=== PATIENT | female | born 1995 | race Caucasian/White ===

== ENCOUNTER 2017-01-12 19:45 | Emergency (ER) | payer OTHER ==
[2017-01-12] MEDS ORDERED: Ibuprofen TAB* 600 MG PO ONE (20:39)
[2017-01-12] MEDS ORDERED: Albuterol HFA INHALER* 8 gm MDI INH ONE (20:40)
--- NOTE | 2017-01-12 20:52 | ED ---
Influenza-Like Illness - HPI Summary HPI Summary: Pt here w/ flu-like sx x 5 days. Sneezing, coughing, head congestion, mild otalgia, throat irritation, fever, and intermittent vomiting triggered by prolonged/forceful cough. Has chest pain w/ cough at times = feels like she could bring something up but it's stuck. Sleeps well w/ Nyquil. Has not been taking ibuprofen/acetaminophen for fever, pain. Has generalized aches and reports diarrhea this morning. Has some epigastric discomfort. Admits to a h/o bronchitis and this feels the same. Had pneumonia as a younger child once as well. Did not have an influenza vaccine this year. Recent exposure to friend w/ mono - states she's been tested many times and always comes up negative. Smokes marijuana daily but hasn't smoked in the past 2 days d/t cough, chest discomfort. - History of Current Complaint Chief Complaint: EDGeneral Time Seen by Provider: 01/12/17 20:21 Hx Obtained From: Patient, Family/[employer] - roommates - Allergy/Home Medications Allergies/Adverse Reactions: Allergies Allergy/AdvReac Type Severity Reaction Status Date / Time No Known Allergies Allergy Verified 01/12/17 20:16 PMH/Surg Hx/FS Hx/Imm Hx Previously Healthy: Yes Endocrine/Hematology History: Denies: Autoimmune Disease Respiratory History: Reports: Hx Pneumonia - 1 x as infant, Other Respiratory Problems/Disorders - has had bronchitis a few times Denies: Hx Asthma, Hx Seasonal Allergies GI History: Denies: Hx Gastroesophageal Reflux Disease Infectious Disease History: Reports: Traveled Outside the in Last 30 Days - [place], [place] - Family History Known Family History: Positive: None - Social History Occupation: Employed Part-time - [employer], Student Lives: With Family - roommates Alcohol Use: Rare Hx Substance Use: Yes Substance Use Type: Reports: Marijuana - almost daily Hx Tobacco Use: No Smoking Status (MU): Never Smoked Tobacco Review of Systems Positive: Fever Negative: Drainage, Erythema ENT: Other - see HPI Cardiovascular: Other - see HPI Respiratory: Other - see HPI Gastrointestinal: Other - see HPI Positive: no symptoms reported Musculoskeletal: Other - see HPI Negative: Rash, Bruising Positive: Headache - gets migraines if she takes too much Vit C which she's tried recently - no MCKEON at this time Psychological: Normal All Other Systems Reviewed And Are Negative: Yes Physical Exam Triage Information Reviewed: Yes Vital Signs On Initial Exam: Initial Vitals Temp Pulse Resp BP Pulse Ox 100 F 99 16 114/76 100 01/12/17 20:05 01/12/17 20:05 01/12/17 20:05 01/12/17 20:05 01/12/17 20:05 Vital Signs Reviewed: Yes Appearance: Positive: Well-Appearing, No Pain Distress, Well-Nourished Skin: Positive: Warm, Dry - no rash Head/Face: Positive: Normal Head/Face Inspection - Sinuses w/ mild TTP Eyes: Positive: Normal, EOMI, Conjunctiva Clear. Negative: Conjunctiva Inflammed, Discharge ENT: Positive: Hearing grossly normal, Pharynx normal - cobblestoning, Nasal congestion, TMs normal. Negative: Nasal drainage, Tonsillar swelling, Tonsillar exudate Neck: Positive: Supple, Nontender, No Lymphadenopathy Respiratory/Lung Sounds: Positive: Clear to Auscultation, Breath Sounds Present. Negative: Rales, Rhonchi, Stridor, Wheezes Cardiovascular: Positive: Normal, RRR Abdomen Description: Positive: No Organomegaly, Soft, Other: - mild epigastric TTP - no rebounding. Negative: Splenomegaly Bowel Sounds: Positive: Present Musculoskeletal: Positive: Normal, Strength/ROM Intact Neurological: Positive: Normal, Sensory/Motor Intact, Alert, Oriented to Person Place, Time, CN Intact II-III Psychiatric: Positive: Normal - concerned Diagnostics - Vital Signs Vital Signs Temp Pulse Resp BP Pulse Ox 01/12/17 20:05 100 F 99 16 114/76 100 - Laboratory Lab Statement: Any lab studies that have been ordered have been reviewed, and results considered in the medical decision making process. Flu Symptom Course/Dx - Course Course Of Treatment: Suspect pt has systemic virus and w/ prolonged cough, most likely has bronchitis. Discussed importance of remaining smoke-free during healing period and avoid other triggers. Supportive care reviewed (See HPI). Advised to return to ED if danger s/sx present. Pt agrees w/ plan. - Diagnoses Provider Diagnoses: Influenza-like illness Discharge - Discharge Plan Condition: Stable Disposition: HOME Patient Education Materials: Acute Bronchitis (ED) Forms: *Work Release Referrals: [facility] @ [Outside] Additional Instructions: You appear to have a viral infection. This may be influenza. Due to a prolonged cough, you may also have developed bronchitis. It is advised that you rest, stay hydrated and take ibuprofen alternating w/ acetaminophen for fever, pain. Avoid inhaled or potentially inhaled chemicals such as smoke, candle, air fresheners, perfumes, aerosol cleaning products, etc. You were provided with an albuterol inhaler tonight. You may use this every 4-6 hours as needed for cough , chest tightness. You may also try the following for support: Nasal wash (netti pot) & throat gargle 2 x day with 8 ounces of warm water + 1/ 4 teaspoon of salt Drink 60+ ounces of water daily Sleep 8+ hours per night Avoid Dairy and sugar Hot herbal/decaf tea with lemon & honey Chicken broth (preferably organic, free range chicken) Humidifier in house, but especially near bed at night Try a facial steam with or without eucalyptus essential oil Cough drops Consider taking Vitamin D3 5,000iu and Vitamin C 1,000mg every day during illness Follow-up at [facility] if symptoms persist. *If you develop uncontrolled fever (> 103F) despite medication, intractable vomiting, diarrhea, trouble breathing, or chest pain, return to ED
[2017-01-12 22:25] VITALS: BP 122/84
== END 2017-01-12 22:18 | disposition home or self-care (01) ==
LOC: ED 19:45
DX: J11.1 Influenza due to unidentified influenza virus with other respiratory manifestations (principal); H92.09 Otalgia, unspecified ear; R05 Cough; J02.9 Acute pharyngitis, unspecified; R51 Headache
CPT/HCPCS: 87502; 99282; A9270-GY

== ENCOUNTER 2017-01-28 19:51 | Emergency (ER) | payer OTHER ==
[2017-01-28 20:47] VITALS: BP 121/87
--- NOTE | 2017-01-28 21:10 | UC ---
Complaint Female HPI - HPI Summary HPI Summary: The patient comes in today for: 1. Vaginal pain: Onset: Started yesterday. Palliative/provocative: Inserting a tampon made the pain worse. Quality: "Like a cactus sensation--itching and burning." Region: Severity: 04/17 Time: Constant. Associated symptoms: Vaginal discharge. [id number] female who is presently on her period. Fevers: None. * - History Of Current Complaint Chief Complaint: [facility] Stated Complaint: Time Seen by Provider: 01/28/17 21:04 Hx Obtained From: Patient Hx Last Menstrual Period: 01/27/17 - Allergies/Home Medications Allergies/Adverse Reactions: Allergies Allergy/AdvReac Type Severity Reaction Status Date / Time No Known Allergies Allergy Verified 01/12/17 20:16 Home Medications: Home Medications Naproxen [Naproxen 500 MG TABS] 01/28/17 [History] PMH/Surg Hx/FS Hx/Imm Hx Previously Healthy: Yes Endocrine History Of: Denies: Diabetes, Thyroid Disease, Hyperthyroidism, Hypothyroidism, Dyslipidemia Cardiovascular History Of: Reports: Cardiac Disorders - PFO Denies: Hypertension, Pacemaker/ICD, Myocardial Infarction, Congestive Heart Failure, Atrial Fibrillation, Deep Vein Thrombosis, Bleeding Disorders Respiratory History Of: Denies: COPD, Asthma, Bronchitis, Pneumonia, Pulmonary Embolism GI/ History Of: Denies: Gastroesophageal Reflux, Ulcer, Gastrointestinal Bleed, Gall Bladder Disease, Kidney Stones, Diverticulitis, Renal Disease, Urosepsis Neurological History Of: Denies: TIA, CVA, Dementia, Seizures, Migraine Psychological History Of: Denies: Anxiety, Depression, Bipolar Disorder, Schizophrenia, Post Traumatic Stress Disorder Cancer History Of: Denies: Lung Cancer, Colorectal Cancer, Breast Cancer, Prostate Cancer, Cervical Cancer Other History Of: Negative For: HIV, Hepatitis B, Hepatitis C, Anticoagulant Therapy - Surgical History Surgical History: None - Family History Known Family History: Positive: Hypertension Negative: Cardiac Disease - Social History Occupation: Employed Part-time, Student Alcohol Use: Rare Substance Use Type: Marijuana Smoking Status (MU): Never Smoked Tobacco Review of Systems Constitutional: Negative Skin: Negative Eyes: Negative ENT: Negative Respiratory: Negative Cardiovascular: Negative Gastrointestinal: Negative Genitourinary: Dysuria All Other Systems Reviewed And Are Negative: Yes Physical Exam Triage Information Reviewed: Yes Appearance: Well-Appearing, No Pain Distress, Well-Nourished Vital Signs: Initial Vital Signs Temp 98.8 F 01/28/17 20:40 Pulse 88 01/28/17 20:40 Resp 18 01/28/17 20:40 BP 121/87 01/28/17 20:40 Pulse Ox 100 01/28/17 20:40 Vital Signs Reviewed: Yes Eyes: Negative: Conjunctiva Clear, Discharge ENT: Positive: Hearing grossly normal. Negative: Pharyngeal erythema, Nasal congestion, Nasal drainage, TM bulging, TM dull, TM red, Tonsillar swelling, Tonsillar exudate Dental: Negative: Gross Decay/Caries @, Dental Fracture @ Neck: Positive: Supple, Nontender, No Lymphadenopathy. Negative: Nuchal Rigidity Respiratory: Positive: Chest non-tender, Lungs clear, No respiratory distress. Negative: Crackles, Rhonchi Cardiovascular: Positive: RRR, No Murmur Abdomen Description: Positive: Nontender, No Organomegaly, Soft. Negative: Distended, Guarding Musculoskeletal: Negative: Strength Intact, ROM Intact Neurological: Positive: Alert, Muscle Tone Normal Psychological: Positive: Age Appropriate Behavior, Consolable Skin: Negative: rashes, breakdown UC Physical Exam Vital Signs On Initial Exam: Initial Vitals Temp Pulse Resp BP Pulse Ox 98.8 F 88 18 121/87 100 01/28/17 20:40 01/28/17 20:40 01/28/17 20:40 01/28/17 20:40 01/28/17 20:40 - Genitalia Exam Female Genitourinary: Other - Pelvic: External: No lesions. There were no ulcers. There was slight increase in erythema, but no marked edema. No discharge. Speculum exam. Moist, old, dried blood. Some fresh dark blood. No discharge or odor. Bimanual: No cervical motion tenderness. No adnexal masses. Complaint Female Dx - Course Course Of Treatment: Patient was told that I did not see any obvious source of her discomfort. She denies any vaginal creams or sprays. She denies any use of lubricants or spermacides. She states that she had used a latex condom, but does not have any known latex allergy. - Differential Dx/Diagnosis Provider Diagnoses: Vaginal introitus dermatitis--new latex allergy? Discharge - Discharge Plan Condition: Stable Disposition: HOME Patient Education Materials: Dermatitis (ED) Referrals: [facility] [Outside] No Primary Care Phys,NOPCP [Primary Care Provider] - 1 Week (Please see your primary care provider in about a week to see how well you are doing. If you don't have a primary care provider, please contact the physician referral service. If you can't get in timely, please you may come back to see us until you can. If you get worse, please be seen sooner by us or the ER.)
== END 2017-01-28 22:21 | disposition home or self-care (01) ==
LOC: UCEAST 19:51
DX: N89.8 Other specified noninflammatory disorders of vagina (principal); F12.90 Cannabis use, unspecified, uncomplicated; Q21.1 Atrial septal defect
CPT/HCPCS: 81003; 87086; 99212; G0463